=== PATIENT | male | born 1945 | race Caucasian/White ===

== ENCOUNTER 2018-01-30 10:45 | Outpatient (RCR) | payer OTHER | END 2018-02-25 | disposition home or self-care (01) | LOC: PTY 10:45 | DX: G89.29 Other chronic pain (principal); M25.512 Pain in left shoulder ==

== ENCOUNTER 2018-05-17 10:04 | Outpatient (RCR) | payer OTHER | END 2018-05-27 | disposition home or self-care (01) | LOC: PTY 10:04 | DX: G89.29 Other chronic pain (principal); M25.512 Pain in left shoulder ==

== ENCOUNTER 2018-05-29 10:58 | Outpatient (RCR) | payer OTHER | END 2018-06-27 | disposition home or self-care (01) | LOC: PTY 10:58 | DX: G89.29 Other chronic pain (principal); M25.512 Pain in left shoulder ==